=== PATIENT | male | born 1935 | race Caucasian/White ===

== ENCOUNTER 2017-10-17 07:37 | Inpatient (IN) | payer MEDICARE, OTHER ==
[2017-10-17] MEDS ORDERED: Magnesium Sulfate 2 GM/100 ML BAG ONE (08:35)
[2017-10-17 08:54] LABS: Troponin I 0.567 ng/mL (< 0.028)
[2017-10-17] MEDS ORDERED: Nitroglycerin 0.4 MG TAB (25 Tab Bottle) PO PRN (09:29)
[2017-10-17] MEDS ORDERED: Bisacodyl 5 MG TAB PO PRN (09:29)
[2017-10-17] MEDS ORDERED: Acetaminophen 650 MG Suppository PR PRN (09:29)
[2017-10-17] MEDS ORDERED: Acetaminophen 325 MG TAB PO PRN (09:29)
[2017-10-17] MEDS ORDERED: Aspirin 325 MG TAB PO SCH (10:00)
--- NOTE | 2017-10-17 10:48 | HP ---
PRIMARY CARE PROVIDER: Jax Sequeira M.D., in [place]. CHIEF COMPLAINT: Shortness of breath HISTORY OF PRESENT ILLNESS: Mr. Aquino is a pleasant 82-year-old gentleman who was seen in the emergency room at [facility] on 10/17, following transfer from [facility] Emergency [facility] in [place]. He reports that he has been having on and off episodes of lightheadedness over the last several months to years. He also reports passing out at least twice. He reports falling 4 weeks ago. He was in the hospital at [facility] for 10 days and was subsequently discharged to rehabilitation. He was at rehab until this morning. He reports that he has chronic shortness of breath and he uses oxygen at home. Prior to his hospitalization, he was on 2 liters of oxygen. Currently, he is on 6 liters of oxygen at inpatient rehabilitation. He also reports a cough over the last few days, that is productive of yellow/white sputum. He denies any fevers or chills. He denies any nausea or vomiting. He denies any chest pain. He is followed by sweatband separator, Dr. Shelton. He reports having a nuclear stress test and thinks it may have been last year. In the emergency room at [facility], he received nebulizers and steroids. He was also found to have an elevated troponin I. He received 300 mg of Plavix and 5000 units heparin intravenously as well as 324 mg of aspirin. He was transferred to this emergency room for further care. The patient was also treated with BiPAP at [facility]. He is currently on oxygen by nasal cannula. REVIEW OF SYSTEMS: All other systems reviewed and noted to be negative. PAST MEDICAL HISTORY: COPD, obstructive sleep apnea, and hypertension. PAST SURGICAL HISTORY: Lithotripsy, hernia repair and tonsillectomy. PSYCHIATRIC HISTORY: Anxiety and depression. SOCIAL HISTORY: No history of tobacco use, alcohol use or recreational drug use. FAMILY HISTORY: No family history of coronary artery disease. CODE STATUS: I discussed his code status. He is FULL CODE. His is a surrogate decision maker. ALLERGIES: No known drug allergies. CURRENT MEDICATIONS: Include hydrochlorothiazide 25 mg daily, Hume 1 tablet every 4 hours as needed, DuoNebs 3 times a day, Ativan 0.5 mg 2 times a day as needed, Toprol-XL 25 mg daily, Dulera 1 puff 2 times a day, MiraLax 17 grams daily, senna/docusate 1 tablet 2 times a day, sertraline 100 mg daily, Flomax 0.4 mg daily. PHYSICAL EXAMINATION: GENERAL: Mr. Aquino is awake and alert, not in acute distress. VITAL SIGNS: Blood pressure is 129/83, pulse is 111. He is breathing at rate of 24 and saturating 91% on 4 liters of oxygen. He is afebrile. EYES: No scleral icterus. No conjunctival pallor. ENT: Moist mucosal membranes, no oropharyngeal erythema or exudates. NECK: Supple, nontender, normal range of movement. Trachea is midline. RESPIRATORY: Accessory muscles of breathing are active. Chest wall movements are symmetric bilaterally. He has diffuse expiratory wheeze. CARDIOVASCULAR: S1 and S2 are heard, tachycardic and regular. Peripheral pulses palpable. No carotid bruit, no pericardial rub. ABDOMEN: Soft, nontender, bowel sounds are heard, no hepatomegaly, no splenomegaly, he has an umbilical hernia. NEUROLOGIC: Cranial nerves II-XII intact. Deep tendon reflexes are 2+. MUSCULOSKELETAL: Power is 5/5 in all 4 extremities. He has bilateral lower extremity edema. SKIN: He has papular lesions over his chest wall. LYMPHATIC: No cervical lymphadenopathy. PSYCHIATRIC: Normal mood, normal affect. The patient is oriented to person, place, and time. LABORATORY DATA: Mr. Aquino's labs and investigations were reviewed. I reviewed his electrocardiogram, he is in normal sinus rhythm with T-wave inversions in the inferior leads and T-wave flattening in the anterior leads. I also reviewed his chest x-ray, which does not show any pulmonary infiltrates. He also had a CT angiogram of the chest done at [facility], which did not show any maxillary, mediastinal or hilar lymphadenopathy. There was no evidence of aortic aneurysm or dissection. There was limited evaluation of subsegmental pulmonary arteries due to extensive respiratory motion artifact. There was no evidence of pulmonary embolism. He also has a stable left lower lobe lung cyst and calcified hepatic granulomas. He has multiple healing left- sided rib fractures. He has an INR of 1.1. Troponin I elevated at 0.71, normal creatinine, normal sodium, decreased potassium of 3.3, AST slightly elevated at 44, normal ALT, normal alkaline phosphatase, normal total bilirubin and an unremarkable CBC. ASSESSMENT AND PLAN: Mr. Aquino is a pleasant 82-year-old gentleman who was seen at [facility] on 10/17/2017. His problem list includes: 1. Acute on chronic hypoxic respiratory failure: Most likely secondary to chronic obstructive pulmonary disease exacerbation. He will be admitted to the hospital and treated with oxygen, steroids, antibiotics and bronchodilators. Pulmonology Service is being consulted by emergency room physician. His gem cutter is Dr. Ritchie. 2. Elevated troponin: Could be secondary to non-ST elevation myocardial infarction versus demand ischemia. The patient will be admitted to the hospital on residential monitor. I should note that repeat troponin is trending down. The emergency room physician has consulted Cardiology Service for help with management. I will continue him on aspirin for now. 3. Hypertension: Monitor vital signs, titrate antihypertensives as needed. 4. Hypokalemia: The patient's potassium has been replaced in the emergency room at [facility]. Recheck potassium level. Many thanks for allowing me to participate in your patient's care. Please feel free to contact me with any questions or concerns. LEVEL OF RISK: High. LEVEL OF COMPLEXITY: High. MTDD
[2017-10-17] MEDS ORDERED: cefTRIAXone\\ROCEPHIN 1 GM in Sodium Chloride 0.9% 100 ML IVPB SCH (11:00)
[2017-10-17 11:48] LABS: Critical Call Chem Troponin I RESULT DECREASING; Troponin I 0.402 ng/mL (< 0.028)
[2017-10-17] MEDS: Azithromycin 500 MG in Sodium Chloride 0.9% 250 ML 250 ML IVPB SCH (12:20)
--- NOTE | 2017-10-17 12:56 | PDOC.PULCN ---
Pulmonology Consult: HPI - Date of Consult Date: 10/17/17 Time: 12:55 - Consult Details Reason for Consult: COPD exacerbation Requesting Physician: Jai - History of Present Illness HPI: TOMEKA SILVERIO is a 82 year-old M, sent over from [place] [facility] for evaluation of increasing SOB and a somewhat elevated troponin. He has seen Dr. Ritchie in the past and has mild COPD by previous spirometry. He fell about 10 days ago and was hospitalized in [place] for 7 days with Left rib fx and sob. Was [facility] for rehab and has been wearing high flow oxygen. Today noted to be more SOB, with hypoxemia and wheezing. He states he is also coughing up yellow sputum. Pulmonology Consult: ROS - Review of Systems All systems: reviewed and no additional remarkable complaints except as stated Respiratory: cough, wheezing Pulmonology Consult: [facility] Past Medical History: COPD CLAUDIA HTN lithotripsy hernia repair T&A - Family History Pertinent family history: No COPD or CAD - Social History Smoking Status: Never smoker Alcohol Use: none Drug Use History: none Living Situation: independent, (recently in intermediate) Pulmonology Consult: Meds - Medications Medications: Current Medications Acetaminophen (Tylenol) 650 mg PO Q4H PRN PRN Reason: Headache/Fever or Pain Acetaminophen (Tylenol) 650 mg [place] Q4H PRN PRN Reason: Headache/Fever or Pain Albuterol/Ipratropium (Duoneb) 3 ml NEB [id number] PRN PRN Reason: SOB &/or Wheezing Albuterol/Ipratropium (Duoneb) 3 ml NEB [id number] [facility] Aspirin (Aspirin) 325 mg PO DAILY [facility] Bisacodyl (Dulcolax) 10 mg PO DAILYPRN PRN PRN Reason: Constipation Azithromycin 500 mg/ Sodium (Chloride) 250 mls @ 250 mls/hr IVPB 1000 [facility] Last Admin: 10/17/17 12:20 Dose: 250 mls Ceftriaxone Sodium 1 gm/ (Sodium Chloride) 100 mls @ 200 mls/hr IVPB 1100 [facility] Last Admin: 10/17/17 11:25 Dose: 100 mls Methylprednisolone Sodium Succinate (Solu-Medrol) 40 mg IVP Q6HR [facility] Nitroglycerin (Nitrostat) 0.4 mg PO Q5MIN PRN PRN Reason: Chest Pain - Allergies Allergies/Adverse Reactions: Allergies Allergy/AdvReac Type Severity Reaction Status Date / Time No Known Drug Allergies Allergy Verified 10/17/17 09:27 Pulmonology Consult: PE - Physical Exam Deviation from normal: tachypnic HEENT: PERRLA, moist MMs, sclera anicteric Neck: no nodes, no JVD Cardiovascular: RRR, no significant murmur Respiratory: wheezes Gastrointestinal: soft, non-tender Musculoskeletal: no edema Neurological: non-focal, normal sensation Lymphatic: no nodes Psychiatric: normal affect, A&O x 3 Skin: no rash, normal turgor Pulmonology Consult: Results - Radiology Interpretation Chest x-ray Additional comments: No mass, effusion or infiltrate. CT angio from [facility] - no PE, no effusion Pulmonology Consult: A/P - Time Time: 50% of the time was spent in coordination of care (as documented) at patient's floor/unit and/or counseling patient. Time with Patient: greater than 70 minutes - Plan Plan: labs: from [place] wbc 9.5 hb 15 plt 170 sodium 141 potassium 3.3 bun 18 cr 0.98 bnp 87 Assessment: COPD / Asthma w excerbation Recent rib fx on left elevated troponin Plan: steroids NEBS abx low flow O2
[2017-10-17 13:27] VITALS: BMI 33.9
[2017-10-17 14:43] LABS: Critical Call Chem Troponin I RESULT DECREASING; Troponin I 0.372 ng/mL (< 0.028)
[2017-10-17] MEDS: Piperacillin/Tazobactam 3.375 GM in Sodium Chloride 0.9% 100 ML IVPB SCH ×2 (17:39→23:46)
[2017-10-17] MEDS: Arformoterol 15 MCG/2 ML NEB NEB SCH (19:07)
[2017-10-17] MEDS: Budesonide 0.5 MG/2 ML NEB INH SCH (19:12)
--- NOTE | 2017-10-17 20:31 | CON ---
DATE OF ADMISSION: 10/17/2017 DATE OF CONSULTATION: 10/17/2017 INDICATION FOR CONSULTATION: An 82-year-old gentleman with slight indeterminate cardiac enzymes with a history of COPD, and hypertension. HISTORY OF PRESENT ILLNESS: This is a very unfortunate 82-year-old gentleman, has had a long history of shortness of breath and COPD. He recently fell, has been complaining of some dizzy spells and he fell and injured his right side rib and had some fracture. He remained 10 days in the hospital and was sent to rehabilitation. He had previously been on O2 at home at 2 liters chronically. When he l eft the hospital, he was on 6 liters of oxygen by nasal cannula. It was noted in the rehab facility that he had been having decreased O2 saturations, they were having difficulties keeping his O2 satura tion stable and for the last 1-1/2 to 2 weeks, he has been noticing increasing cough, especially at n ight with some phlegm production and due to the increased pain and decreased O2 saturations, he was s ent back to the emergency room. At that time, his cardiac enzymes showed a troponin I of 0.7 apparen tly, since that time it has been 0.56 and then decreased now down to 0.4. There is no indication the patient had any myocardial infarction, most likely this is remnant of whatever occurred doing his ri b fractures. He has had his O2 saturations as low as 83%. At this time, he remains stable. O2 satu ration is 91%. His BNP was 36. He has been followed by Dr. Shelton for some time mainly for his hype rtension. He recently had ankle brachial indices performed, which were normal. His echocardiogram i n the past, also, which were normal and he has had a negative stress test. PAST MEDICAL HISTORY: Significant for tonsillectomy, lithotripsy, hernia repair. 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 He has had a right lower leg vein ablation. SOCIAL HISTORY: He is . He has no alcohol or tobacco abuse at this time. He did smoke in th past, but stopped. FAMILY HISTORY: Noncontributory. ALLERGIES: None. MEDICATIONS: Prior to admission included Flomax, PreserVision, ProAir, Dulera, potassium tablets, me toprolol 25 mg half a tablet q. day, atorvastatin 10 mg once a week. he takes lorazepam as needed and Zoloft 100 mg q. day, and hydrochlorothiazide 25 mg once a day. ALLERGIES: None. REVIEW OF SYSTEMS: He wears glasses, has false teeth. He has decreased hearing in the left ear. He has an umbilical hernia, which is not a problem. He has had episodes of dizziness and also episodes of syncope and has been short of breath. Otherwise, 12-point review of systems is unremarkable. PHYSICAL EXAMINATION: GENERAL: Reveals a well-developed, well-nourished, very pleasant gentleman, who is in no acute distr ess. VITAL SIGNS: Blood pressure 133/71, heart rate is 100-105 and shows a sinus tachycardia, respiratory rate is 20, O2 saturation 91%. He is afebrile. HEENT: Reveals the head to be normocephalic and atraumatic. Carotid pulses are present. I did not hear any significant bruits. NECK: There is no JVD. The thyroid did not appear to be enlarged. CHEST: Clear to auscultation. I did not hear any rales, rhonchi or wheezing. CARDIOVASCULAR: Exam reveals a regular rate and rhythm, slightly tachycardic, but no significant mur murs, heaves, thrills, bruits or rubs are noted. ABDOMEN: Shows obesity with positive bowel sounds. No organomegaly or masses are noted. There is a small umbilical hernia, which is easily reducible. EXTREMITIES: Show no clubbing or cyanosis. He has trace lower extremity ankle edema. He has a prev ious ulceration has healed on the posterior aspect of the right lower leg. NEUROLOGIC: The patient appears to be intact. LABORATORY DATA: As noted above for the cardiac enzymes, which are still indeterminate and continue to trend downward. There is no indication that the patient suffered a myocardial infarction. At thi s time, EKG shows a normal sinus rhythm. IMPRESSION: 1. Chronic obstructive pulmonary disease. This will be dealt by the milling planer operator, but he appears t o be comfortable at this time and O2 saturations are 91%. He is actually on 3 liters at this time. 2. Hypertension, which is under good control at this time. 3. History of dizziness, which is uncertain etiology. We will continue just to follow the patient. It appears that he may have some orthostatic hypotension. He has also had some problems with urinat ion when he becomes very dizzy, but has not had syncopal episode and does not appear to have micturit ion syncope. 4. Lower extremity edema, for which he wears compression hose and this usually takes care of the pro blem. He has had evidence of venous insufficiency in the past and has undergone an ablation perhaps the right lesser saphenous vein is unclear, but he has not had any recent vein studies in our office, but has had other workup as noted above with normal echo, normal stress test, and normal ankle brach ial indices. We will be happy to continue to follow the patient with you, but at this time from a ca rdiac standpoint, he appears to be stable. We will always need to consider whether or not the patien t has suffered a pulmonary emboli during his hospitalization after the rib fractures.
[2017-10-17] MEDS: Lorazepam 1 MG TAB PO PRN (23:46)
[2017-10-18 05:38] LABS: #Lymphocytes 0.9 thou/uL (1.20-3.40); #Monocytes 0.5 thou/uL (0.11-0.59); #Neutrophils 6.7 thou/uL (1.40-6.50); %Eosinophils 0.1 % (0.0-10.0); %Lymphocytes 11.5 % (21.0-51.0); %Monocytes 6.2 % (0.0-10.0); %Neutrophils 82.2 % (42.0-75.0); Hemoglobin 14.8 g/dL (14.0-18.0); Mean Corpuscular HGB CONC 32.6 g/dL (32.0-36.0); Mean Corpuscular Volume 91.9 fl (80.0-94.0); Mean Platelet Volume 9.9 fL (7.4-10.4); Platelet Count 174 thou/uL (130-400); Red Blood Cell (RBC) Count 4.92 mill/uL (4.70-6.10); White Blood Cell (WBC) Count 8.1 thou/uL (4.8-10.8)
[2017-10-18] MEDS: Piperacillin/Tazobactam 3.375 GM in Sodium Chloride 0.9% 100 ML IVPB SCH ×3 (05:41→18:40)
[2017-10-18 05:57] LABS: Anion Gap 11 mmol/L (10-20); BUN (Urea Nitrogen) 19 mg/dL (8.4-25.7); Calc. Creatinine Clearance 99 mL/min (70-130); Calcium 8.9 mg/dL (7.8-10.44); Carbon Dioxide 29 mmol/L (23-31); Chloride 103 mmol/L (98-107); Estimated GFR-MDRD 76; Glucose 134 mg/dL (83-110); Potassium 3.5 mmol/L (3.5-5.1); Sodium 139 mmol/L (136-145)
[2017-10-18] MEDS: Budesonide 0.5 MG/2 ML NEB INH SCH ×2 (06:20→18:44)
[2017-10-18] MEDS: Arformoterol 15 MCG/2 ML NEB NEB SCH ×2 (06:34→18:42)
--- NOTE | 2017-10-18 08:33 | PRG ---
DATE OF SERVICE: 10/18/2017 HISTORY: Mr. Aquino when I came in the room was on CPAP, changed to nasal cannula oxygen 6 liters p er minute. PHYSICAL EXAMINATION: VITAL SIGNS: His blood pressure 117/70, pulse in the 80s. LUNGS: Expiratory wheezing. CARDIAC: Normal S1 and S2. ABDOMEN: Soft, nontender. EXTREMITIES: There is no edema. ASSESSMENT: 1. Chronic obstructive pulmonary disease, mild with a recent episode of shortness of breath, still s ome wheezing. 2. The patient had a CT pulmonary angiogram in [place] which was negative for pulmonary emboli. 3. Non-ST elevation infarction ? demand ischemia, peak troponin 0.567. PLAN: 1. He is on aspirin. 2. He is on enoxaparin. 3. He is on antibiotics. 4. Steroids. 5. We will repeat chest x-ray. He still looks very ill. We will continue to follow with you.
--- NOTE | 2017-10-18 08:55 | RAD ---
PORTABLE CHEST: History: Dyspnea. FINDINGS: Heart size is within normal limits. Lungs are clear of any infiltrative process. No signs of failure. IMPRESSION: No active intrathoracic disease. POS: [facility]
[2017-10-18] MEDS: Aspirin 325 MG TAB PO SCH (09:17)
[2017-10-18] MEDS: Enoxaparin Sodium 40 MG/0.4 ML SYRINGE SC SCH (09:18)
[2017-10-18] MEDS ORDERED: Polyethylene Glycol 3350 17 GM Packet PO PRN (10:58)
[2017-10-18] MEDS: Azithromycin 500 MG in Sodium Chloride 0.9% 250 ML 250 ML IVPB SCH (11:02)
[2017-10-18] MEDS ORDERED: Guaifenesin DM 100-10/5 ML UDCUP PO PRN (11:06)
--- NOTE | 2017-10-18 15:09 | PDOC.PN ---
- Subjective Encounter Start Date: 10/18/17 Encounter Start Time: 07:20 Pt seen for followup re: acute on chronic hypoxic respiratory failure. Denies chest pain. Has cough. No fevers or chills. Shortness of breath still present , but better. - Objective MAR Reviewed: Yes Vital Signs & Weight: Vital Signs (12 hours) Temp Pulse Resp BP BP Pulse Ox 10/18/17 14:29 102 H 16 10/18/17 12:59 97.6 F 108 H 18 127/71 94 L 10/18/17 10:19 92 L 10/18/17 10:17 101 H 16 10/18/17 08:55 97.9 F 107 H 20 122/68 92 L 10/18/17 06:34 80 12 10/18/17 06:20 85 12 10/18/17 04:00 97.9 F 85 15 117/71 96 I&O: 10/17/17 10/18/17 10/19/17 06:59 06:59 06:59 Intake Total 1457 Balance 1457 Result Diagrams: 10/18/17 05:17 10/18/17 05:17 EKG Reviewed by me: Yes (Tele: sinus tachycardia) Phys Exam - Physical Examination Obese HEENT: moist MMs, sclera anicteric, oral pharynx no lesions, 2+ tonsils Neck: no nodes, no JVD, supple, full ROM Respiratory: no rales, no rhonchi, wheezing present S1, S2, tachy, reg Gastrointestinal: soft, non-tender, no distention, positive bowel sounds Neurological: moves all 4 limbs Psychiatric: normal affect, A&O x 3 Dx/Plan (1) Acute on chronic respiratory failure with hypoxia Code(s): J96.21 - ACUTE AND CHRONIC RESPIRATORY FAILURE WITH HYPOXIA Status: Acute Comment: Due to COPD exacerbation (2) COPD exacerbation Code(s): J44.1 - CHRONIC OBSTRUCTIVE PULMONARY DISEASE W (ACUTE) EXACERBATION Status: Acute Comment: Continue oxygen, steroids, bronchodilators and antibiotics (3) Elevated troponin I level Code(s): R74.8 - ABNORMAL LEVELS OF OTHER SERUM ENZYMES Status: Acute Comment: NSTEMI vs demand ischemia. 2D echo pending. Pt is on aspirin. (4) HTN (hypertension) Code(s): I10 - ESSENTIAL (PRIMARY) HYPERTENSION Status: Chronic Comment: Controlled (5) Hypokalemia Code(s): E87.6 - HYPOKALEMIA Status: Resolved - Plan * . Review of Systems - Review of Systems Constitutional: negative: fever, chills, sweats, weakness, malaise Respiratory: Cough, Shortness of Breath, SOB with Excertion, Sputum, Wheezing. negative: Dry, Hemoptysis, Pleuritic Pain Cardiovascular: negative: chest pain, palpitations, orthopnea, paroxysmal nocturnal dyspnea, edema, light headedness Gastrointestinal: negative: Nausea, Vomiting, Abdominal Pain, Diarrhea, Constipation, Melena, Hematochezia Genitourinary: negative: Dysuria, Frequency, Incontinence, Hematuria, Retention Skin: negative: Rash, Lesions, Johnny, Bruising - Medications/Allergies Allergies/Adverse Reactions: Allergies Allergy/AdvReac Type Severity Reaction Status Date / Time No Known Drug Allergies Allergy Verified 10/17/17 14:38 Medications: Current Medications Acetaminophen (Tylenol) 650 mg PO Q4H PRN PRN Reason: Headache/Fever or Pain Acetaminophen (Tylenol) 650 mg GA Q4H PRN PRN Reason: Headache/Fever or Pain Albuterol/Ipratropium (Duoneb) 3 ml NEB [id number] [facility] Last Admin: 10/18/17 14:29 Dose: 3 ml Arformoterol Tartrate (Brovana) 15 mcg NEB BID-RT [facility] Last Admin: 10/18/17 06:34 Dose: 15 mcg Aspirin (Aspirin) 325 mg PO DAILY [facility] Last Admin: 10/18/17 09:17 Dose: 325 mg Bisacodyl (Dulcolax) 10 mg PO DAILYPRN PRN PRN Reason: Constipation Budesonide (Pulmicort Neb Solution) 0.5 mg INH BID-RT [facility] Last Admin: 10/18/17 06:20 Dose: 0.5 mg Enoxaparin Sodium (Lovenox) 40 mg SC 0900 [facility] Last Admin: 10/18/17 09:18 Dose: 40 mg Guaifenesin/Dextromethorphan (Robitussin Dm) 10 ml PO Q4H PRN PRN Reason: Cough Hydrochlorothiazide (Hydrochlorothiazide) 25 mg PO DAILY [facility] Azithromycin 500 mg/ Sodium (Chloride) 250 mls @ 250 mls/hr IVPB 1000 [facility] Last Admin: 10/18/17 11:02 Dose: 250 mls Piperacillin Sod/Tazobactam (Sod 3.375 gm/ Sodium Chloride) 100 mls @ 200 mls/ hr IVPB Q6HR [facility] Last Admin: 10/18/17 12:53 Dose: 100 mls Lorazepam (Ativan) 1 mg PO Q8H PRN PRN Reason: Anxiety Last Admin: 10/17/17 23:46 Dose: 1 mg Methylprednisolone Sodium Succinate (Solu-Medrol) 40 mg IVP Q6HR [facility] Last Admin: 10/18/17 12:53 Dose: 40 mg Metoprolol Succinate (Toprol Xl) 12.5 mg PO DAILY [facility] Nitroglycerin (Nitrostat) 0.4 mg PO Q5MIN PRN PRN Reason: Chest Pain Polyethylene Glycol (Miralax) 17 gm PO DAILY PRN PRN Reason: Constipation Senna/Docusate Sodium (Senokot S) 1 tab PO BID [facility] Sertraline HCl (Zoloft) 100 mg PO DAILY [facility] Sodium Chloride (Flush - Normal Saline) 10 ml IVF Q12HR [facility] Last Admin: 10/18/17 05:41 Dose: 10 ml Sodium Chloride (Flush - Normal Saline) 10 ml IVF PRN PRN PRN Reason: Saline Flush Tamsulosin HCl (Flomax) 0.4 mg PO DAILY [facility]
--- NOTE | 2017-10-18 15:32 | PRG ---
DATE OF SERVICE: 10/18/2017 SUBJECTIVE: This morning he is awake, alert, and responsive. He is better, who presented to the [facility] ER with marked shortness of breath. His troponin was slightly elevated, but felt to be a demand ischemia. OBJECTIVE: VITAL SIGNS: This morning he is better. His sats are 96, respirations are 12. No longer on CPAP, t jeanette he has a nocturnal CPAP at home. Temperature 97, blood pressure 117/31. CHEST: Chest reveals decreased breath sounds, no wheezing. CARDIAC: Normal S and S2. No gallop. ABDOMEN: Soft. LABORATORY DATA: White count 8000 and his chemistry profile is normal. His troponin was 0.372 and h is chest x-ray shows no acute infiltrates. ASSESSMENT: 1. Chronic obstructive pulmonary disease exacerbations/bronchitis. 2. Elevated troponin. PLAN: Continue antibiotics, transfer after 24 hours after deescalate, supportive care and PT. We will follow.
[2017-10-18] MEDS: Lorazepam 1 MG TAB PO PRN (20:39)
[2017-10-18] MEDS: Senokot S 8.6-50 MG TAB PO SCH (20:39)
[2017-10-19] MEDS: Piperacillin/Tazobactam 3.375 GM in Sodium Chloride 0.9% 100 ML IVPB SCH ×2 (00:25→05:13)
[2017-10-19 05:19] LABS: #Lymphocytes 0.8 thou/uL (1.20-3.40); #Monocytes 0.5 thou/uL (0.11-0.59); #Neutrophils 9.1 thou/uL (1.40-6.50); %Basophils 0.1 % (0.0-1.0); %Eosinophils 0.1 % (0.0-10.0); %Lymphocytes 7.3 % (21.0-51.0); %Neutrophils 87.5 % (42.0-75.0); Hemoglobin 14.9 g/dL (14.0-18.0); Mean Corpuscular Hemoglobin 29.4 pg (27.0-31.0); Mean Corpuscular Volume 91.7 fl (80.0-94.0); Mean Platelet Volume 10.2 fL (7.4-10.4); Platelet Count 171 thou/uL (130-400); RBC Distribution Width 13.4 % (11.5-14.5); Red Blood Cell (RBC) Count 5.09 mill/uL (4.70-6.10); White Blood Cell (WBC) Count 10.4 thou/uL (4.8-10.8)
[2017-10-19 06:10] LABS: Anion Gap 8 mmol/L (10-20); BUN (Urea Nitrogen) 26 mg/dL (8.4-25.7); Calc. Creatinine Clearance 87 mL/min (70-130); Calcium 8.7 mg/dL (7.8-10.44); Carbon Dioxide 31 mmol/L (23-31); Chloride 106 mmol/L (98-107); Estimated GFR-MDRD 66; Glucose 133 mg/dL (83-110); Potassium 3.4 mmol/L (3.5-5.1); Sodium 142 mmol/L (136-145)
[2017-10-19] MEDS: Arformoterol 15 MCG/2 ML NEB NEB SCH ×2 (07:01→19:26)
[2017-10-19] MEDS: Budesonide 0.5 MG/2 ML NEB INH SCH ×2 (07:01→19:26)
[2017-10-19] MEDS ORDERED: Hydrochlorothiazide 25 MG TAB PO SCH (09:00)
[2017-10-19] MEDS: Tamsulosin HCl 0.4 MG CAP PO SCH (09:08)
[2017-10-19] MEDS: Aspirin 325 MG TAB PO SCH (09:08)
[2017-10-19] MEDS: Senokot S 8.6-50 MG TAB PO SCH ×2 (09:08→21:14)
[2017-10-19] MEDS: Enoxaparin Sodium 40 MG/0.4 ML SYRINGE SC SCH (09:09)
[2017-10-19] MEDS: Amoxicillin/Potassium Clav 500 MG TAB PO SCH ×2 (09:48→21:14)
[2017-10-19] MEDS: Lorazepam 1 MG TAB PO PRN (09:48)
--- NOTE | 2017-10-19 13:03 | PRG ---
DATE OF SERVICE: 10/19/2017 SUBJECTIVE: An 82-year-old gentleman. This morning, he is alert, awake, and responsive. OBJECTIVE: VITAL SIGNS: Sats are 92% on 4 liters, respirations 18, temperature 97, blood pressure 136/99, diffi culty breathing. He walked with the help of a walker. He is still complaining of being dizzy from t carlin to time. CHEST: Decreased breath sounds, no wheezing. CARDIAC: Normal S1, S2, no gallops. ABDOMEN: Soft. No masses. LABORATORY DATA: His white count only 10,000. Electrolytes are normal. BNP is 398, slightly elevat ed. IMPRESSION: 1. Chronic obstructive pulmonary disease exacerbation, bronchitis, no pneumonia. 2. Dizzy spells. 3. Sleep apnea. PLAN: From a pulmonary standpoint, he was switched over to oral medication, supportive care and PT. Hopefully, we can discharge home in the next 24-48 hours.
--- NOTE | 2017-10-19 15:03 | PDOC.PN ---
- Subjective Encounter Start Date: 10/19/17 Encounter Start Time: 07:20 Pt seen for followup re: acute on chronic respiratory failure. Breathing better , no chest pain. No fever. - Objective MAR Reviewed: Yes Vital Signs & Weight: Vital Signs (12 hours) Temp Pulse Pulse Pulse Resp BP BP 10/19/17 14:03 92 20 10/19/17 10:49 100 20 10/19/17 09:22 107 H 107 H 134/67 112/64 10/19/17 07:02 10/19/17 06:58 98 18 10/19/17 04:00 97.2 F L 83 18 10/19/17 03:40 BP Pulse Ox Pulse Ox Pulse Ox 10/19/17 14:03 89 L 10/19/17 10:49 90 L 10/19/17 09:22 83 L 88 L 10/19/17 07:02 92 L 10/19/17 06:58 92 L 10/19/17 04:00 131/69 95 10/19/17 03:40 93 L I&O: 10/18/17 10/19/17 10/20/17 06:59 06:59 06:59 Intake Total 1457 Balance 1457 Result Diagrams: 10/19/17 04:36 10/19/17 04:36 Additional Labs: Accuchecks 10/19/17 06:24 POC Glucose 119 H EKG Reviewed by me: Yes (Tele: NSR) Phys Exam - Physical Examination Obese HEENT: moist MMs, sclera anicteric, oral pharynx no lesions, 2+ tonsils Neck: no nodes, no JVD, supple, full ROM Respiratory: no rales, no rhonchi, wheezing present Cardiovascular: RRR, no rub S1, S2 Gastrointestinal: soft, non-tender, no distention, positive bowel sounds Musculoskeletal: edema present Neurological: moves all 4 limbs Psychiatric: normal affect Skin: no rash Dx/Plan (1) Acute on chronic respiratory failure with hypoxia Code(s): J96.21 - ACUTE AND CHRONIC RESPIRATORY FAILURE WITH HYPOXIA Status: Acute Comment: Improving, due to COPD exacerbation (2) COPD exacerbation Code(s): J44.1 - CHRONIC OBSTRUCTIVE PULMONARY DISEASE W (ACUTE) EXACERBATION Status: Acute Comment: Slowly improving, with O2, steroids, bronchodilators and antibiotics (3) Elevated troponin I level Code(s): R74.8 - ABNORMAL LEVELS OF OTHER SERUM ENZYMES Status: Acute Comment: NSTEMI vs demand ischemia. 2D echo report noted, continue aspirin. (4) HTN (hypertension) Code(s): I10 - ESSENTIAL (PRIMARY) HYPERTENSION Status: Chronic Comment: stable - Plan * . Review of Systems - Review of Systems Constitutional: negative: fever, chills, sweats, weakness, malaise Respiratory: Cough, Shortness of Breath, SOB with Excertion, Sputum. negative: Dry, Hemoptysis, Pleuritic Pain, Wheezing Cardiovascular: negative: chest pain, palpitations, orthopnea, paroxysmal nocturnal dyspnea, edema, light headedness Gastrointestinal: negative: Nausea, Vomiting, Abdominal Pain, Diarrhea, Constipation, Melena, Hematochezia Genitourinary: negative: Dysuria, Frequency, Incontinence, Hematuria, Retention Neurological: negative: Weakness, Numbness, Incoordination, Change in Speech, Confusion, Seizures - Medications/Allergies Allergies/Adverse Reactions: Allergies Allergy/AdvReac Type Severity Reaction Status Date / Time No Known Drug Allergies Allergy Verified 10/17/17 14:38 Medications: Current Medications Acetaminophen (Tylenol) 650 mg PO Q4H PRN PRN Reason: Headache/Fever or Pain Acetaminophen (Tylenol) 650 mg [place] Q4H PRN PRN Reason: Headache/Fever or Pain Albuterol/Ipratropium (Duoneb) 3 ml NEB [id number] [facility] Last Admin: 10/19/17 14:03 Dose: 3 ml Amoxicillin/Clavulanate Potassium (Augmentin) 500 mg PO Q12HR [facility] Stop: 10/24/17 09:01 Last Admin: 10/19/17 09:48 Dose: 500 mg Arformoterol Tartrate (Brovana) 15 mcg NEB BID-RT [facility] Last Admin: 10/19/17 07:01 Dose: 15 mcg Aspirin (Aspirin) 325 mg PO DAILY [facility] Last Admin: 10/19/17 09:08 Dose: 325 mg Bisacodyl (Dulcolax) 10 mg PO DAILYPRN PRN PRN Reason: Constipation Budesonide (Pulmicort Neb Solution) 0.5 mg INH BID-RT [facility] Last Admin: 10/19/17 07:01 Dose: 0.5 mg Enoxaparin Sodium (Lovenox) 40 mg SC 09 [facility] Last Admin: 10/19/17 09:09 Dose: 40 mg Guaifenesin/Dextromethorphan (Robitussin Dm) 10 ml PO Q4H PRN PRN Reason: Cough Hydrochlorothiazide (Hydrochlorothiazide) 25 mg PO DAILY [facility] Last Admin: 10/19/17 09:08 Dose: 25 mg Lorazepam (Ativan) 1 mg PO Q8H PRN PRN Reason: Anxiety Last Admin: 10/19/17 09:48 Dose: 1 mg Metoprolol Succinate (Toprol Xl) 12.5 mg PO DAILY [facility] Last Admin: 10/19/17 09:09 Dose: 12.5 mg Nitroglycerin (Nitrostat) 0.4 mg PO Q5MIN PRN PRN Reason: Chest Pain Polyethylene Glycol (Miralax) 17 gm PO DAILY PRN PRN Reason: Constipation Prednisone (Prednisone) 20 mg PO QAM-[facility] Senna/Docusate Sodium (Senokot S) 1 tab PO BID [facility] Last Admin: 10/19/17 09:08 Dose: 1 tab Sertraline HCl (Zoloft) 100 mg PO DAILY [facility] Last Admin: 10/19/17 09:08 Dose: 100 mg Sodium Chloride (Flush - Normal Saline) 10 ml IVF Q12HR [facility] Last Admin: 10/19/17 09:09 Dose: 10 ml Sodium Chloride (Flush - Normal Saline) 10 ml IVF PRN PRN PRN Reason: Saline Flush Tamsulosin HCl (Flomax) 0.4 mg PO DAILY [facility] Last Admin: 10/19/17 09:08 Dose: 0.4 mg
[2017-10-19] MEDS ORDERED: Furosemide 20 MG/2 ML VIAL SLOW IVP SCH (17:45)
[2017-10-19] MEDS ORDERED: Potassium Chloride 20 MEQ TAB PO SCH (17:45)
--- NOTE | 2017-10-19 18:59 | PRG ---
DATE OF SERVICE: 10/19/2017 SUBJECTIVE: Mr. Aquino is still short of breath. He has no chest pains. OBJECTIVE: VITAL SIGNS: Blood pressure 112/64 and 134/67, pulse is still over 100. LUNGS: Clear. CARDIAC: Normal S1 and S2. ABDOMEN: Soft, nontender. EXTREMITIES: There is more edema. PERTINENT LABORATORY: The BNP is elevated. It was not elevated on admission. ASSESSMENT: 1. Bronchitis asthmatic. 2. Probably has some diastolic heart failure, at least clearly does have that by the BNP. 3. Iol-WL-vqhzhvcve infarction. PLAN: We will increase diuretics. Continue to follow with you.
[2017-10-19] MEDS ORDERED: Lorazepam 0.5 MG TAB PO SCH (22:15)
[2017-10-20 04:56] LABS: #Eosinphils 0.1 thou/uL (0.0-0.7); #Lymphocytes 2.3 thou/uL (1.20-3.40); #Monocytes 1.5 thou/uL (0.11-0.59); #Neutrophils 8.9 thou/uL (1.40-6.50); %Basophils 0.1 % (0.0-1.0); %Lymphocytes 17.7 % (21.0-51.0); %Monocytes 11.6 % (0.0-10.0); %Neutrophils 69.6 % (42.0-75.0); Hemoglobin 15.2 g/dL (14.0-18.0); Mean Corpuscular HGB CONC 32.6 g/dL (32.0-36.0); Mean Corpuscular Hemoglobin 30.3 pg (27.0-31.0); Mean Corpuscular Volume 92.7 fl (80.0-94.0); Mean Platelet Volume 10.2 fL (7.4-10.4); Platelet Count 160 thou/uL (130-400); RBC Distribution Width 13.4 % (11.5-14.5); Red Blood Cell (RBC) Count 5.02 mill/uL (4.70-6.10); White Blood Cell (WBC) Count 12.7 thou/uL (4.8-10.8)
[2017-10-20 05:08] LABS: Anion Gap 13 mmol/L (10-20); BUN (Urea Nitrogen) 25 mg/dL (8.4-25.7); Calc. Creatinine Clearance 88 mL/min (70-130); Calcium 8.6 mg/dL (7.8-10.44); Carbon Dioxide 22 mmol/L (23-31); Chloride 109 mmol/L (98-107); Estimated GFR-MDRD 66; Glucose 79 mg/dL (83-110); Potassium 3.4 mmol/L (3.5-5.1); Sodium 141 mmol/L (136-145)
[2017-10-20] MEDS: Furosemide 20 MG/2 ML VIAL SLOW IVP SCH ×2 (06:07→14:35)
[2017-10-20] MEDS: Budesonide 0.5 MG/2 ML NEB INH SCH ×2 (06:44→18:32)
[2017-10-20] MEDS: Arformoterol 15 MCG/2 ML NEB NEB SCH ×2 (06:45→18:32)
[2017-10-20] MEDS: Aspirin 325 MG TAB PO SCH (09:13)
[2017-10-20] MEDS: Amoxicillin/Potassium Clav 500 MG TAB PO SCH ×2 (09:13→20:48)
[2017-10-20] MEDS: predniSONE 20 MG TAB PO SCH (09:13)
[2017-10-20] MEDS: Senokot S 8.6-50 MG TAB PO SCH ×2 (09:13→20:48)
[2017-10-20] MEDS: Potassium Chloride 20 MEQ TAB PO SCH ×2 (09:14→17:57)
[2017-10-20] MEDS: Tamsulosin HCl 0.4 MG CAP PO SCH (09:14)
[2017-10-20] MEDS: Enoxaparin Sodium 40 MG/0.4 ML SYRINGE SC SCH (09:15)
--- NOTE | 2017-10-20 09:57 | PQF ---
CLINICAL DOCUMENTATION IMPROVEMENT CLARIFICATION FORM: ICD-10 Updated PLEASE DO AN ADDENDUM TO THE PROGRESS NOTE WITH ANY DOCUMENTATION UPDATES OR ADDITIONS AND CARRY THROUGH TO DC SUMMARY. THANK YOU. DATE: 10/20 ATTN: DR. RISHI HARMON Please exercise your independent, professional judgment in responding to the clarification form. Clinical indicators are provided on the bottom of this form for your review Please check appropriate box(s): AMI TYPE: [ ] NSTEMI [ ] AMI Type II [ ] Demand Ischemia [ ] Other diagnosis [ x ] Unable to determine CLINICAL INDICATORS - SIGNS / SYMPTOMS / LABS ER PHYSICIAN DIAGNOSES DOCUMENTATION 10/17: COPD EXACERBATION, NSTEMI ELEVATED TROP I: 0.567 ATTENDING H&P DOCUMENTATION 10/17: ASSESSMENT/PLAN: 2) ELEVATED TROPONIN: COULD BE 2/2 NSTEMI VS DEMAND ISCHEMIA. ...I SHOULD NOTE THAT REPEAT TROPONIN IS TRENDING DOWN CARDIOLOGY H&P DOCUMENTATION 10/17: HX PRESENT ILLNESS: RECENT FALL W/RIB FRACTURES. ...SENT TO ER, HIS CARDIAC ENZYMES SHOWED A TROP I OF 0.7 APPARENTLY , SINCE THAT TIME IT HAS BEEN 0.56 & THEN DECREASED NOW DOWN TO 0.4. THERE IS NO INDICATION THE PATIENT HAD ANY OK, MOST LIKELY THIS IS REMNANT OF WHATEVER OCCURRED DURING HIS RIB FX ATTENDING PN 10/18 & : 3) ELEVATED TROP I LEVEL; NSTEMI VS DEMAND ISCHEMIA CARDIOLOGY PN 10/18: ASSESSMENT: 3) NSTEMI, ? DEMAND ISCHEMIA CARDIOLOGY PN 10/19: ASSESSMENT: 3) NSTEMI TROP I X3 10/17: 0.567, 0.402, 0.372 RISKS: HTN ACUTE COPD EXACERBATION ACUTE ON CHRONIC RESPIRATORY FAILURE TREATMENTS: CARDIOLOGY CONSULT ECHO TELEMETRY MONITORING THANK YOU! Monique (This form is maintained as a part of the permanent medical record) 2014 [employer]. All Rights Reserved Monique Strange RN, BSN [email or web address] Office: [phone] [facility]
[2017-10-20] MEDS: Lorazepam 0.5 MG TAB PO PRN ×2 (10:29→20:48)
--- NOTE | 2017-10-20 13:22 | PRG ---
DATE OF SERVICE: 10/20/2017 SUBJECTIVE: Jose Aquino this morning is awake, alert, and responsive. PHYSICAL EXAMINATION: VITAL SIGNS: His sats on 3 liters are 91 to 92, respiration 20, temperature 97, blood pressure 120/7 4. CHEST: Decreased breath sounds without any wheezing. CARDIAC: Normal S1, S2, no gallops. ABDOMEN: Soft, no masses. LABORATORY DATA: Electrolytes are normal. White count 12,000. IMPRESSION: Chronic obstructive pulmonary disease exacerbation, bronchitis, respiratory failure, sle ep apnea, pulmonary hypertension, and normal systolic function. PLAN: Disposition to home anytime. Continue nocturnal CPAP, PT and supportive care.
--- NOTE | 2017-10-20 13:58 | PDOC.PN ---
- Subjective Encounter Start Date: 10/20/17 Encounter Start Time: 08:00 Pt seen for followup re: acute on chronic respiratory failure with hypoxia. Feels slightly better. Still has cough and sputum. - Objective MAR Reviewed: Yes Vital Signs & Weight: Vital Signs (12 hours) Temp Pulse Resp BP BP Pulse Ox 10/20/17 10:54 93 18 89 L 10/20/17 09:00 97.9 F 98 23 H 91 L 10/20/17 07:46 97.9 F 98 23 H 120/74 91 L 10/20/17 06:45 92 L 10/20/17 06:43 81 18 92 L 10/20/17 04:00 97.4 F L 82 18 136/81 96 10/20/17 02:37 90 L 10/20/17 02:08 16 Weight Weight 234 lb I&O: 10/19/17 10/20/17 10/21/17 06:59 06:59 06:59 Intake Total 960 Output Total 1725 Balance -765 Result Diagrams: 10/20/17 04:12 10/20/17 04:12 EKG Reviewed by me: Yes (Tele: NSR) Phys Exam - Physical Examination Constitutional: NAD HEENT: moist MMs Neck: supple [place] crackles Cardiovascular: RRR Gastrointestinal: soft Musculoskeletal: edema present Neurological: moves all 4 limbs Psychiatric: normal affect Dx/Plan (1) Acute on chronic respiratory failure with hypoxia Code(s): J96.21 - ACUTE AND CHRONIC RESPIRATORY FAILURE WITH HYPOXIA Status: Acute Comment: Improving, due to COPD exacerbation, although patient also appears to have a component of diastolic CHF (2) COPD exacerbation Code(s): J44.1 - CHRONIC OBSTRUCTIVE PULMONARY DISEASE W (ACUTE) EXACERBATION Status: Acute Comment: Slowly improving, with O2, steroids, bronchodilators and antibiotics (3) Acute diastolic (congestive) heart failure Code(s): I50.31 - ACUTE DIASTOLIC (CONGESTIVE) HEART FAILURE Status: Acute Comment: continue diuretics (4) Elevated troponin I level Code(s): R74.8 - ABNORMAL LEVELS OF OTHER SERUM ENZYMES Status: Acute Comment: Unclear etiology, continue aspirin (5) HTN (hypertension) Code(s): I10 - ESSENTIAL (PRIMARY) HYPERTENSION Status: Chronic Comment: stable - Plan out of bed/ambulate * . Review of Systems - Review of Systems Respiratory: Cough, SOB with Excertion, Sputum. negative: Dry, Shortness of Breath, Hemoptysis, Pleuritic Pain, Wheezing Cardiovascular: negative: chest pain, palpitations, orthopnea, paroxysmal nocturnal dyspnea, edema, light headedness - Medications/Allergies Allergies/Adverse Reactions: Allergies Allergy/AdvReac Type Severity Reaction Status Date / Time No Known Drug Allergies Allergy Verified 10/17/17 14:38 Medications: Current Medications Acetaminophen (Tylenol) 650 mg PO Q4H PRN PRN Reason: Headache/Fever or Pain Acetaminophen (Tylenol) 650 mg [place] Q4H PRN PRN Reason: Headache/Fever or Pain Albuterol/Ipratropium (Duoneb) 3 ml NEB [id number] [facility] Last Admin: 10/20/17 10:54 Dose: 3 ml Amoxicillin/Clavulanate Potassium (Augmentin) 500 mg PO Q12HR [facility] Stop: 10/24/17 09:01 Last Admin: 10/20/17 09:13 Dose: 500 mg Arformoterol Tartrate (Brovana) 15 mcg NEB BID-RT [facility] Last Admin: 10/20/17 06:45 Dose: 15 mcg Aspirin (Aspirin) 325 mg PO DAILY [facility] Last Admin: 10/20/17 09:13 Dose: 325 mg Bisacodyl (Dulcolax) 10 mg PO DAILYPRN PRN PRN Reason: Constipation Budesonide (Pulmicort Neb Solution) 0.5 mg INH BID-RT [facility] Last Admin: 10/20/17 06:44 Dose: 0.5 mg Enoxaparin Sodium (Lovenox) 40 mg SC 0900 [facility] Last Admin: 10/20/17 09:15 Dose: 40 mg Furosemide (Lasix) 20 mg SLOW IVP 0600,1400 [facility] Last Admin: 10/20/17 06:07 Dose: 20 mg Guaifenesin/Dextromethorphan (Robitussin Dm) 10 ml PO Q4H PRN PRN Reason: Cough Lorazepam (Ativan) 0.5 mg PO Q8H PRN PRN Reason: Anxiety Last Admin: 10/20/17 10:29 Dose: 0.5 mg Metoprolol Succinate (Toprol Xl) 12.5 mg PO DAILY [facility] Last Admin: 10/20/17 09:14 Dose: 12.5 mg Nitroglycerin (Nitrostat) 0.4 mg PO Q5MIN PRN PRN Reason: Chest Pain Polyethylene Glycol (Miralax) 17 gm PO DAILY PRN PRN Reason: Constipation Potassium Chloride (K-Dur) 20 meq PO BID-[facility] Last Admin: 10/20/17 09:14 Dose: 20 meq Potassium Chloride (K-Dur) 40 meq PO ONE [facility] Prednisone (Prednisone) 20 mg PO QAM-[facility] Last Admin: 10/20/17 09:13 Dose: 20 mg Senna/Docusate Sodium (Senokot S) 1 tab PO BID [facility] Last Admin: 10/20/17 09:13 Dose: Not Given Sertraline HCl (Zoloft) 100 mg PO DAILY [facility] Last Admin: 10/20/17 09:14 Dose: 100 mg Sodium Chloride (Flush - Normal Saline) 10 ml IVF Q12HR [facility] Last Admin: 10/20/17 09:15 Dose: 10 ml Sodium Chloride (Flush - Normal Saline) 10 ml IVF PRN PRN PRN Reason: Saline Flush Last Admin: 10/20/17 06:07 Dose: 10 ml Tamsulosin HCl (Flomax) 0.4 mg PO DAILY [facility] Last Admin: 10/20/17 09:14 Dose: 0.4 mg
[2017-10-20] MEDS ORDERED: Potassium Chloride 20 MEQ TAB PO SCH ×2 (14:00→18:30)
--- NOTE | 2017-10-20 19:17 | PRG ---
DATE OF SERVICE: 10/20/2017 CARDIOLOGY FOLLOWUP SUBJECTIVE: Mr. Aquino is breathing better. He said he had a really excellent response to the diur etic and his breathing has improved. PHYSICAL EXAMINATION: VITAL SIGNS: Blood pressure 118/76, pulse 74, regular. LUNGS: Clear. CARDIAC: Normal S1 and S2. ABDOMEN: Soft, nontender. EXTREMITIES: Only mild edema. LABORATORY DATA: Potassium was 3.4. He has received a lot of potassium. The I&O is only -700 mL, b ut I do not think all the urine output was recorded. ASSESSMENT: 1. Diastolic heart failure, improved. 2. Asthmatic bronchitis. 3. Increased troponin, possibly demand ischemia, but will also like to screen for obstructive royal ry disease with stress testing. 4. Nonsustained supraventricular tachycardia. PLAN: 1. Proceed to stress testing tomorrow. If there are any abnormalities, will proceed to catheterizat ion the next day. 2. Reduce diuretic dose tomorrow.
[2017-10-21 05:14] LABS: Anion Gap 12 mmol/L (10-20); BUN (Urea Nitrogen) 26 mg/dL (8.4-25.7); Calc. Creatinine Clearance 91 mL/min (70-130); Calcium 8.8 mg/dL (7.8-10.44); Carbon Dioxide 29 mmol/L (23-31); Chloride 106 mmol/L (98-107); Estimated GFR-MDRD 74; Glucose 84 mg/dL (83-110); Potassium 3.7 mmol/L (3.5-5.1); Sodium 143 mmol/L (136-145)
[2017-10-21] MEDS: Furosemide 20 MG/2 ML VIAL SLOW IVP SCH ×2 (06:15→13:57)
[2017-10-21] MEDS: Arformoterol 15 MCG/2 ML NEB NEB SCH ×2 (08:00→18:08)
[2017-10-21] MEDS: Budesonide 0.5 MG/2 ML NEB INH SCH ×2 (08:00→18:08)
[2017-10-21] MEDS: Enoxaparin Sodium 40 MG/0.4 ML SYRINGE SC SCH (08:21)
--- NOTE | 2017-10-21 09:19 | PRG ---
DATE OF SERVICE: 10/21/2017 This morning he is awake, alert, responsive. He is doing well. His PFT shows mild reduction in patrick l capacity, expiratory flows with mildly reduced diffusing capacity. PHYSICAL EXAMINATION: VITAL SIGNS; His sats are 93 on 4 liters, respirations 18, pulse 82, temperature 97, blood pressure 120/74. Less short of breath. CHEST: Chest revealed decreased breath sounds, no wheezing. CARDIAC: Normal S1, S2. No gallops. ABDOMEN: Soft, no masses. IMPRESSION: 1. Chronic obstructive pulmonary disease. 2. Severe hypoxemia. 3. Sleep apnea. 4. His hypoxemia is way out of proportion to his PFT. 5. Elevated troponin. PLAN: From a pulmonary standpoint, he can be discharged home on oral antibiotics, tapering dose of s teroids.
[2017-10-21] MEDS ORDERED: Regadenoson 0.4 MG/5 ML SYRINGE ONE ×2 (11:47→14:00)
[2017-10-21] MEDS: Aspirin 325 MG TAB PO SCH (13:55)
[2017-10-21] MEDS: Amoxicillin/Potassium Clav 500 MG TAB PO SCH ×2 (13:55→19:41)
[2017-10-21] MEDS: Potassium Chloride 20 MEQ TAB PO SCH ×2 (13:56→18:02)
[2017-10-21] MEDS: Tamsulosin HCl 0.4 MG CAP PO SCH (13:56)
[2017-10-21] MEDS: Senokot S 8.6-50 MG TAB PO SCH ×2 (13:57→19:35)
[2017-10-21] MEDS: predniSONE 20 MG TAB PO SCH (13:57)
[2017-10-21] MEDS: Lorazepam 0.5 MG TAB PO PRN (14:00)
--- NOTE | 2017-10-21 16:16 | NM ---
NUCLEAR MEDICINE MYOCARDIAL PERFUSION SCAN: 10/21/2017 HISTORY: An 82-year-old male with chest pain. COMPARISON: None. TECHNIQUE: SPECT imaging of the left ventricular myocardium is obtained during rest and stress, following the in travenous administration of 9.5 and 29 millicuries of technetium 99m labeled sestamibi, respectively. FINDINGS: Left ventricular wall motion appears normal with an estimated ejection fraction of 84%, likely overes timated on the basis of a low ESV of 9 mL. EDV is 56 mL. TID is 1.23. No fixed or reversible defect noted. There is mild inferior wall attenuation, greater on rest than on stress, suggesting diaphragmatic attenuation. IMPRESSION: No evidence for reversible ischemia. POS: [place]
--- NOTE | 2017-10-21 16:24 | PDOC.PN ---
- Subjective Encounter Start Date: 10/21/17 Encounter Start Time: 09:40 Pt seen for followup re: acute hypoxic respiratory failure. Feels better. Denies chest pain. Shortness of breath is better. No nausea or vomiting. - Objective MAR Reviewed: Yes Vital Signs & Weight: Vital Signs (12 hours) Temp Pulse Pulse Pulse Resp BP BP 10/21/17 14:18 111 H 106 H 141/83 H 128/67 10/21/17 13:59 92 22 H 10/21/17 13:45 97.8 F 96 17 10/21/17 08:00 97.5 F L 82 18 10/21/17 04:28 BP Pulse Ox Pulse Ox Pulse Ox 10/21/17 14:18 92 L 94 L 10/21/17 13:59 95 10/21/17 13:45 116/69 95 10/21/17 08:00 121/74 93 L 10/21/17 04:28 92 L Weight Weight 234 lb I&O: 10/20/17 10/21/17 10/22/17 06:59 06:59 06:59 Intake Total 960 480 Output Total 1725 450 Balance -765 30 Result Diagrams: 10/20/17 04:12 10/21/17 04:23 EKG Reviewed by me: Yes (Tele: NSR) Phys Exam - Physical Examination Constitutional: NAD HEENT: moist MMs Neck: supple Respiratory: clear to auscultation bilateral Cardiovascular: RRR Gastrointestinal: soft Neurological: moves all 4 limbs Psychiatric: normal affect Dx/Plan (1) Acute on chronic respiratory failure with hypoxia Code(s): J96.21 - ACUTE AND CHRONIC RESPIRATORY FAILURE WITH HYPOXIA Status: Acute Comment: Improved. (2) COPD exacerbation Code(s): J44.1 - CHRONIC OBSTRUCTIVE PULMONARY DISEASE W (ACUTE) EXACERBATION Status: Acute Comment: Improving, continue O2, steroids, bronchodilators and antibiotics (3) Acute diastolic (congestive) heart failure Code(s): I50.31 - ACUTE DIASTOLIC (CONGESTIVE) HEART FAILURE Status: Acute Comment: continue diuretics (4) Elevated troponin I level Code(s): R74.8 - ABNORMAL LEVELS OF OTHER SERUM ENZYMES Status: Acute Comment: For stress test today (5) HTN (hypertension) Code(s): I10 - ESSENTIAL (PRIMARY) HYPERTENSION Status: Chronic Comment: stable - Plan * . Likely discharge in 24 h Review of Systems - Review of Systems Respiratory: Cough, Dry, SOB with Excertion. negative: Shortness of Breath, Pleuritic Pain, Wheezing Cardiovascular: negative: chest pain, palpitations, orthopnea, paroxysmal nocturnal dyspnea, edema, light headedness - Medications/Allergies Allergies/Adverse Reactions: Allergies Allergy/AdvReac Type Severity Reaction Status Date / Time No Known Drug Allergies Allergy Verified 10/17/17 14:38 Medications: Current Medications Acetaminophen (Tylenol) 650 mg PO Q4H PRN PRN Reason: Headache/Fever or Pain Acetaminophen (Tylenol) [address] Q4H PRN PRN Reason: Headache/Fever or Pain Albuterol/Ipratropium (Duoneb) 3 ml NEB [id number] [facility] Last Admin: 10/21/17 13:59 Dose: 3 ml Amoxicillin/Clavulanate Potassium (Augmentin) 500 mg PO Q12HR [facility] Stop: 10/24/17 09:01 Last Admin: 10/21/17 13:55 Dose: 500 mg Arformoterol Tartrate (Brovana) 15 mcg NEB BID-RT [facility] Last Admin: 10/21/17 08:00 Dose: Not Given Aspirin (Aspirin) 325 mg PO DAILY [facility] Last Admin: 10/21/17 13:55 Dose: 325 mg Bisacodyl (Dulcolax) 10 mg PO DAILYPRN PRN PRN Reason: Constipation Budesonide (Pulmicort Neb Solution) 0.5 mg INH BID-RT [facility] Last Admin: 10/21/17 08:00 Dose: Not Given Enoxaparin Sodium (Lovenox) 40 mg SC 0900 [facility] Last Admin: 10/21/17 08:21 Dose: 40 mg Furosemide (Lasix) 20 mg SLOW IVP 0600,1400 [facility] Last Admin: 10/21/17 13:57 Dose: 20 mg Guaifenesin/Dextromethorphan (Robitussin Dm) 10 ml PO Q4H PRN PRN Reason: Cough Lorazepam (Ativan) 0.5 mg PO Q8H PRN PRN Reason: Anxiety Last Admin: 10/21/17 14:00 Dose: 0.5 mg Metoprolol Succinate (Toprol Xl) 12.5 mg PO DAILY [facility] Last Admin: 10/21/17 13:56 Dose: 12.5 mg Nitroglycerin (Nitrostat) 0.4 mg PO Q5MIN PRN PRN Reason: Chest Pain Polyethylene Glycol (Miralax) 17 gm PO DAILY PRN PRN Reason: Constipation Potassium Chloride (K-Dur) 20 meq PO BID-[facility] Last Admin: 10/21/17 13:56 Dose: 20 meq Prednisone (Prednisone) 20 mg PO QAM-[facility] Last Admin: 10/21/17 13:57 Dose: 20 mg Senna/Docusate Sodium (Senokot S) 1 tab PO BID [facility] Last Admin: 10/21/17 13:57 Dose: Not Given Sertraline HCl (Zoloft) 100 mg PO DAILY [facility] Last Admin: 10/21/17 13:57 Dose: 100 mg Sodium Chloride (Flush - Normal Saline) 10 ml IVF Q12HR [facility] Last Admin: 10/21/17 08:22 Dose: 10 ml Sodium Chloride (Flush - Normal Saline) 10 ml IVF PRN PRN PRN Reason: Saline Flush Last Admin: 10/21/17 06:15 Dose: 10 ml Tamsulosin HCl (Flomax) 0.4 mg PO DAILY [facility] Last Admin: 10/21/17 13:56 Dose: 0.4 mg
--- NOTE | 2017-10-21 17:12 | PRG ---
DATE OF SERVICE: 10/21/2017 SUBJECTIVE: Mr. Aquino continues to improve. His stress test was negative today. OBJECTIVE: VITAL SIGNS: Blood pressure 128/67, pulse 100. LUNGS: Clear. CARDIAC: Normal S1 and S2. ASSESSMENT: 1. Diastolic congestive heart failure, improved. 2. Asthmatic bronchitis, improved. PLAN: Check electrolytes tomorrow, probably discontinue the IV Lasix after tomorrow.
[2017-10-22 04:46] LABS: Anion Gap 13 mmol/L (10-20); BUN (Urea Nitrogen) 27 mg/dL (8.4-25.7); Calc. Creatinine Clearance 104 mL/min (70-130); Calcium 8.7 mg/dL (7.8-10.44); Carbon Dioxide 24 mmol/L (23-31); Chloride 107 mmol/L (98-107); Estimated GFR-MDRD 87; Glucose 91 mg/dL (83-110); Potassium 4.6 mmol/L (3.5-5.1); Sodium 139 mmol/L (136-145)
[2017-10-22] MEDS: Furosemide 20 MG/2 ML VIAL SLOW IVP SCH (05:36)
[2017-10-22] MEDS: Budesonide 0.5 MG/2 ML NEB INH SCH (06:17)
[2017-10-22] MEDS: Arformoterol 15 MCG/2 ML NEB NEB SCH (06:47)
[2017-10-22 07:44] VITALS: TEMP 96.3
--- NOTE | 2017-10-22 08:55 | PRG ---
DATE OF SERVICE: 10/22/2017 He is awake, alert, responsive, less short of breath. PHYSICAL EXAMINATION: VITAL SIGNS: His sats are surprisingly 88 on 3 liters, they have been in the 90s on 3-4 liters, puls e 85, temperature 96, blood pressure is 134/74. Denied any difficulty breathing. CHEST: Chest reveals decreased breath sounds, no wheezing. CARDIAC: Normal S1, S2, no gallops. ABDOMEN: Soft, no masses. . EXTREMITIES: No edema. IMPRESSION: 1. Chronic obstructive pulmonary disease exacerbation. 2. Sleep apnea. 3. Hypoxemia. 4. Diastolic dysfunction. PLAN: From a pulmonary standpoint of view could discharge home. He has medicine as prescribed. He can see me in the office in about a month.
[2017-10-22] MEDS: Enoxaparin Sodium 40 MG/0.4 ML SYRINGE SC SCH (09:30)
[2017-10-22] MEDS: Aspirin 325 MG TAB PO SCH (09:31)
[2017-10-22] MEDS: Amoxicillin/Potassium Clav 500 MG TAB PO SCH (09:31)
[2017-10-22] MEDS: Senokot S 8.6-50 MG TAB PO SCH (09:31)
[2017-10-22] MEDS: predniSONE 20 MG TAB PO SCH (09:32)
[2017-10-22] MEDS: Tamsulosin HCl 0.4 MG CAP PO SCH (09:32)
[2017-10-22] MEDS: Lorazepam 0.5 MG TAB PO PRN (09:35)
[2017-10-22] MEDS ORDERED: Clopidogrel Bisulfate 300 MG TAB PO SCH (09:45)
--- NOTE | 2017-10-22 10:28 | PRG ---
DATE OF SERVICE: 10/22/2017 SUBJECTIVE: Mr. Aquino is not having shortness of breath or chest pain. He feels better today. PHYSICAL EXAMINATION: VITAL SIGNS: His blood pressure 134/74, pulse 85 and regular. LUNGS: Clear. CARDIAC: Normal S1 and normal S2. ABDOMEN: Soft and nontender. ASSESSMENT: 1. Diastolic heart failure, improved. 2. Chronic obstructive pulmonary disease. 3. Status post non-ST elevation infarction, probably demand ischemia with normal stress test. PLAN: 1. Add Plavix for at least a month or two in view of the increased troponin levels. 2. Resume statins. He can only take Lipitor 10 mg once a week. 3. We will try to be discharged. 4. Follow up with me in a month.
--- NOTE | 2017-10-22 11:06 | DIS ---
DATE OF ADMISSION: 10/17/2017 DATE OF DISCHARGE: 10/22/2017 PRIMARY CARE PROVIDER: Dr. Jax Seuqeira. DISCHARGE DIAGNOSES: 1. Acute hypoxic respiratory failure. 2. Chronic obstructive pulmonary disease exacerbation. 3. Acute diastolic congestive heart failure. 4. Demand ischemia. CONDITION OF PATIENT ON THE DAY OF DISCHARGE: Stable. I assessed Mr. Aquino on the day of discharg e. He denies any chest pain or shortness of breath. PHYSICAL EXAMINATION: VITAL SIGNS: Stable. HEART: S1 and S2 are heard, regular. LUNGS: Clear to auscultation bilaterally. CONSULTATIONS DURING THIS HOSPITALIZATION: Pulmonology, Dr. Arroyo and Cardiology, Dr. Scanlon. DISCHARGE MEDICATIONS: Amoxicillin/potassium clavulanate 500 mg 2 times a day for 5 days, Brovana 15 mcg nebulizer 2 times a day, aspirin 81 mg daily, Plavix 75 mg daily, Lasix 20 mg daily, Toprol-XL 1 2.5 mg daily, Livalo 2 mg daily, prednisone 20 mg daily for 5 days, sertraline 100 mg daily, tamsulos in 0.4 mg daily, Orono 5/325 mg q.4 hours p.r.n., DuoNeb 3 mL 4 times a day as needed, and MiraLax 17 grams daily. HOSPITAL COURSE: Mr. Aquino is a pleasant 82-year-old gentleman who was admitted to [facility] on 10/17/2017 for acute hypoxic respiratory failure. Please refer to my history a nd physical note from 10/17/2017 for further information. He was seen by Pulmonology and Cardiology services. He had an elevated troponin I. A 2D echocardiogram showed left ventricular ejection fract ion of 60%-65%, E/A flow reversal suggestive of diastolic dysfunction, moderately enlarged right vent ricle cavity, paradoxical motion consistent with right ventricular volume overload and/or elevated ri ght ventricle end diastolic pressure, right ventricular systolic pressure of 50 mmHg consistent with moderate to severe pulmonary hypertension, normal sized left atrium, mildly enlarged right atrium, tr annita mitral regurgitation and mild to moderate tricuspid regurgitation. He improved with oxygen, steroids, bronchodilators and antibiotics. In view of his elevated troponin I, he had a nuclear stress test, which did not show any evidence for reversible ischemia. He is reece ng discharged back to [facility] in a stable condition. Many thanks for allowing me to participate in your patient's care. Please feel free to contact me wi th any questions or concerns. DISCHARGE DESTINATION: [facility], from where patient was admitted to this hospital. TOTAL AMOUNT OF TIME SPENT COORDINATING THIS DISCHARGE: 33 minutes.
[2017-10-22 11:31] VITALS: BP 138/80
[2017-10-23] MEDS ORDERED: Potassium Chloride 20 MEQ TAB PO SCH (08:00)
[2017-10-23] MEDS ORDERED: Aspirin 81 mg Enteric Coated Tablet PO SCH (09:00)
[2017-10-23] MEDS ORDERED: Clopidogrel Bisulfate 75 MG TAB PO SCH (09:00)
--- NOTE | 2017-10-23 22:51 | EKG ---
Test Reason : Blood Pressure : / mmHG Vent. Rate : 105 BPM Atrial Rate : 105 BPM P-R Int : 130 ms QRS Dur : 092 ms QT Int : 390 ms P-R-T Axes : 063 099 -12 degrees QTc Int : 515 ms Sinus tachycardia Rightward axis Abnormal ECG Confirmed by LUZMARIA GALICIA MD ([id number]), senior editor EMILY CORONADO ([id number]) on 10/23/2017 10:50:23 PM Referred By: Confirmed By:LUZMARIA GALICIA MD
== END 2017-10-22 15:10 | DRG 189 ==
LOC: ERS 07:37 → 2NO 10:31
PROVIDERS: ADMIT Internal Medicine; ATTEND Internal Medicine
DX: J96.21 Acute and chronic respiratory failure with hypoxia (principal); I50.31 Acute diastolic (congestive) heart failure; J44.1 Chronic obstructive pulmonary disease with (acute) exacerbation; I24.8 Other forms of acute ischemic heart disease; I47.2 Ventricular tachycardia; J45.901 Unspecified asthma with (acute) exacerbation; G47.33 Obstructive sleep apnea (adult) (pediatric); F41.9 Anxiety disorder, unspecified; F32.9 Major depressive disorder, single episode, unspecified; E87.6 Hypokalemia; I11.0 Hypertensive heart disease with heart failure; I27.20 Pulmonary hypertension, unspecified; Z79.899 Other long term (current) drug therapy
CPT/HCPCS: 36415; 36416; 71045; 78452; 80048; 83735; 83880; 84484; 85025; 93005; 93017; 93306; 94060; 94640; 94727; 94729; 94760; 96365; A4216; A9500; G8978-GP-CL; G8979-GP-CK; J0456; J0696; J1650; J1940; J2543; J2785; J2920; J3475; J7050; J7506; J7620; J7626

== ENCOUNTER 2019-10-13 13:39 | Outpatient (CLI) | payer MEDICARE, OTHER ==
--- NOTE | 2019-10-13 14:05 | RAD ---
EXAM: Two views chest PROVIDED CLINICAL HISTORY: Dyspnea COMPARISON: 10/18/2017 FINDINGS: Cardiac silhouette and pulmonary vasculature are within normal limits. Linear densities are seen in the right upper lung zone and at the left lung base which may be related to areas of mild scarring. Slight blunting of left lateral costophrenic angle is noted which is not appreciated on the prior ex am. This could be related to mild pleural-parenchymal scarring. There are remote left-sided rib fractures identified. No consolidation or pleural fluid is seen. -Vascular calcifications are seen in thoracic aorta. Degenerative changes noted in the spine. IMPRESSION: 1. Findings most likely attributable to mild chronic lung changes. No consolidation or definite pleur al effusion is appreciated. 2. Remote left-sided rib fractures.
== END 2019-10-13 13:40 | disposition home or self-care (01) ==
LOC: RAD 13:39
PROVIDERS: ATTEND Internal Medicine Pulmonary Disease
DX: R06.00 Dyspnea, unspecified (principal); S22.32XA Fracture of one rib, left side, initial encounter for closed fracture
CPT/HCPCS: 71046